=== PATIENT | female | born 1990 | race Caucasian/White ===

== ENCOUNTER 2017-01-22 13:04 | Emergency (ER) | payer SELFPAY ==
[~2017-01-22] VITALS: Ht 162.6 cm; Wt 65.8 kg
[2017-01-22 13:20] VITALS: BP_SYST 136
--- NOTE | 2017-01-22 13:26 | NUR ---
BACK TO OK IN STABLE CONDITION, AMBULATED WITH GOOD STEADY GAIT.
--- NOTE | 2017-01-22 14:04 | NUR ---
Pt to bed 2
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
--- NOTE | 2017-01-22 14:20 | NUR ---
ER at bedside examining patient.
--- NOTE | 2017-01-22 14:38 | NUR ---
Radiology went to take pt for a x ray and pt was gone, urine sample was at bedside, went to restroom, waiting room and outside. Pt eloped, Dr Montiel is aware
--- NOTE | 2017-01-22 14:41 | NUR ---
Sheldon quinn and is aware
== END 2017-01-22 14:40 | disposition left against medical advice (07) ==
LOC: SED 13:04
DX: M54.9 Dorsalgia, unspecified (principal); Z88.6 Allergy status to analgesic agent; Z53.20 Procedure and treatment not carried out because of patient's decision for unspecified reasons
CPT/HCPCS: 99281